=== PATIENT | female | born 1940 | race Hispanic/Latino ===

== ENCOUNTER 2017-03-13 07:47 | Day surgery (SDC) | payer OTHER ==
[~2017-03-13] VITALS: Ht 165.1 cm; Wt 46.4 kg
[~2017-03-13 07:47] MED LIST: AMLO5TAB2 PO; CHOL100040 PO; LOSA50TA37 PO; METAMUCIL; MULT-1296 PO; POLY17PO4 PO; PROBIOTIC; SIMV20TA6 PO; [UNRECOGNIZED DRUG - CODE] PO
[2017-03-13 08:27] VITALS: BP 119/65
[2017-03-13] MEDS ORDERED: SENN-183 PO (08:49)
[2017-03-13] MEDS ORDERED: SODIUM CHLORIDE 0.9% 1000ML 1,000 ML IV ONE (09:07)
[2017-03-13] MEDS ORDERED: PROPOFOL 10 MG/ML 20ML VIAL IV ONE (10:26)
== END 2017-03-13 11:18 ==
LOC: ENDO 07:47 → DAH 07:47 → ENDO 11:18
PROVIDERS: ATTEND Internal Medicine Gastroenterology
DX: K86.89 Other specified diseases of pancreas (principal); K57.30 Diverticulosis of large intestine without perforation or abscess without bleeding; I10 Essential (primary) hypertension; E78.5 Hyperlipidemia, unspecified; Z87.01 Personal history of pneumonia (recurrent); Z88.6 Allergy status to analgesic agent; Z86.010 Personal history of colon polyps; Z90.710 Acquired absence of both cervix and uterus
CPT/HCPCS: 36415; 43237; 86316; 93005; A4606; J2704; J7030; 43231; G9654

== ENCOUNTER 2017-08-25 23:50 | Emergency (ER) | payer OTHER ==
[~2017-08-25 23:50] MED LIST changes: -METAMUCIL; +SENN-183 PO
[2017-08-26 00:16] LABS: BASOPHILS % (AUTO) 0.6 % (0.0-5.0); EOSINOPHILS % (AUTO) 1.9 % (0.0-8.0); HEMATOCRIT 34.7 % (36-48); LYMPHOCYTES % (AUTO) 27.8 % (21.0-51.0); MEAN CORPUSCULAR HEMOGLOBIN 30.7 pg (27.0-33.0); MEAN CORPUSCULAR HGB CONC 35.1 g/dL (32.0-36.0); MEAN CORPUSCULAR VOLUME 87.5 fL (79-99); MONOCYTES % (AUTO) 8.1 % (3.0-13.0); NEUTROPHILS % (AUTO) 61.6 % (40.0-77.0); PLATELET COUNT (AUTO) 193 K/uL (130-400); RED BLOOD CELL COUNT(AUTO) 3.97 MIL/uL (4.00-5.50); RED CELL DISTRIBUTION WIDTH 12.7 % (11.0-15.5)
[2017-08-26 00:21] LABS: CREATININE 0.7 mg/dL (0.5-1.5); INR 1.04 (0.85-1.15); PARTIAL THROMBOPLASTIN TIME 21.9 SEC (26.3-35.5); POTASSIUM 3.2 mmol/L (3.5-5.1); PROTHROMBIN TIME 10.9 SEC (9.6-11.6)
[2017-08-26 00:35] LABS: ALBUMIN 3.5 g/dL (3.5-5.0); BILIRUBIN,TOTAL 0.4 mg/dL (0.2-1.0); CREATINE KINASE MB 0.5 ng/mL (0.5-3.6); TOTAL PROTEIN, SERUM 7.2 g/dL (6.0-8.3)
[2017-08-26 00:41] LABS: APPEARANCE,URINE Clear (CLEAR); BILIRUBIN,URINE Negative (NEGATIVE); COLOR,URINE Yellow (YELLOW); GLUCOSE, URINE (UA) Negative (NEGATIVE); KETONES,URINE Negative (NEGATIVE); LEUKOCYTE ESTERASE ,URINE Large (NEGATIVE); NITRATE,URINE Negative (NEGATIVE); OCCULT BLOOD,URINE Negative (NEGATIVE); PROTEIN,URINE Negative (NEGATIVE); UROBILINOGEN,URINE 0.2 mg/dL (0.2-1.0)
[2017-08-26 00:59] LABS: BACTERIA,URINE Few /HPF (None Seen); MUCUS,URINE Many LPF (None Seen); RBC,URINE 0-1 /HPF (0-1); RENAL EPITHELIAL CELLS,URINE Moderate /HPF (None Seen); SQUAMOUS EPITHELIAL CELL,UR Few /HPF (0-2)
[2017-08-26] MEDS ORDERED: LEVOFLOXACIN 500 MG/D5W 100 ML 100 ML ONE (01:16)
[2017-08-26] MEDS ORDERED: SODIUM CHLORIDE 0.9% 500ML 500 ML IV ONE (01:16)
== END 2017-08-26 02:26 | disposition home or self-care (01) ==
LOC: EDH 23:50
DX: N39.0 Urinary tract infection, site not specified (principal); R55 Syncope and collapse; E78.5 Hyperlipidemia, unspecified; I10 Essential (primary) hypertension; Z90.49 Acquired absence of other specified parts of digestive tract; Z90.710 Acquired absence of both cervix and uterus; Z88.6 Allergy status to analgesic agent
CPT/HCPCS: 36415; 71045; 74176; 80053; 81001; 82150; 82550; 82553; 83690; 84484; 85025; 85610; 85730; 87088; 93005; 96365; 99285; J1956; J7040

== ENCOUNTER → 2018-04-20 | Outpatient (CLI) | payer OTHER ==
[~2018-04-20] MED LIST changes: -AMLO5TAB2 PO; +AMLO5TAB9 PO; -LOSA50TA37 PO; +LOSA50TA64 PO
== END | disposition home or self-care (01) ==
LOC: RAH 10:58
PROVIDERS: ATTEND Internal Medicine
DX: R14.0 Abdominal distension (gaseous) (principal); R11.0 Nausea; R63.4 Abnormal weight loss
CPT/HCPCS: 78264; A9541

== ENCOUNTER → 2018-05-28 | Outpatient (CLI) | payer OTHER | END | disposition home or self-care (01) | LOC: RAH 07:15 | PROVIDERS: ATTEND Internal Medicine Gastroenterology | DX: K80.20 Calculus of gallbladder without cholecystitis without obstruction (principal); K76.89 Other specified diseases of liver; R63.4 Abnormal weight loss; R93.3 Abnormal findings on diagnostic imaging of other parts of digestive tract | CPT/HCPCS: 76700 ==

== ENCOUNTER → 2018-08-03 | Outpatient (CLI) | payer OTHER | END | disposition home or self-care (01) | LOC: RAH 08:27 | PROVIDERS: ATTEND Family Medicine | DX: Z12.31 Encounter for screening mammogram for malignant neoplasm of breast (principal) | CPT/HCPCS: 77067 ==

== ENCOUNTER → 2018-12-16 | Outpatient (CLI) | payer OTHER | END | disposition home or self-care (01) | LOC: RAH 07:51 | PROVIDERS: ATTEND Internal Medicine Gastroenterology | DX: K80.20 Calculus of gallbladder without cholecystitis without obstruction (principal); K76.89 Other specified diseases of liver | CPT/HCPCS: 76700 ==

== ENCOUNTER 2019-06-19 11:15 | Emergency (ER) | payer OTHER ==
[~2019-06-19 11:15] MED LIST changes: +SIMV-43 PO; -SIMV20TA6 PO
[2019-06-19 11:30] LABS: EOSINOPHILS % (AUTO) 0.5 % (0.0-8.0); HEMATOCRIT 32.3 % (36-48); MEAN CORPUSCULAR HEMOGLOBIN 30.7 pg (27.0-33.0); MEAN CORPUSCULAR HGB CONC 35.3 g/dL (32.0-36.0); MEAN CORPUSCULAR VOLUME 87.1 fL (79-99); MONOCYTES % (AUTO) 11.5 % (3.0-13.0); NEUTROPHILS % (AUTO) 68.8 % (40.0-77.0); PLATELET COUNT (AUTO) 218 K/uL (130-400); RED BLOOD CELL COUNT(AUTO) 3.71 MIL/uL (4.00-5.50); RED CELL DISTRIBUTION WIDTH 11.1 % (11.0-15.5); WHITE BLOOD COUNT (AUTO) 5.5 K/uL (4.8-10.8)
[2019-06-19] MEDS ORDERED: IPRATROPIUM/ALBUTEROL SULFATE 3 ML SOLUTION IH ONE ×2 (11:33→15:47)
[2019-06-19 11:46] LABS: INR 1.07 (0.85-1.15); PARTIAL THROMBOPLASTIN TIME 23.9 SEC (26.3-35.5); PROTHROMBIN TIME 11.5 SEC (9.6-11.6)
[2019-06-19 11:47] LABS: ALBUMIN 3.2 g/dL (3.5-5.0); BILIRUBIN,TOTAL 0.5 mg/dL (0.2-1.0); CREATININE 0.7 mg/dL (0.5-1.5); TOTAL PROTEIN, SERUM 6.8 g/dL (6.0-8.3)
[2019-06-19 12:41] LABS: RAPID GROUP A STREP NEGATIVE (NEGATIVE)
== END 2019-06-19 16:37 | disposition home or self-care (01) ==
LOC: EDH 11:15
DX: R07.89 Other chest pain (principal); R06.02 Shortness of breath; R06.2 Wheezing; E78.5 Hyperlipidemia, unspecified; I10 Essential (primary) hypertension; Z88.6 Allergy status to analgesic agent
CPT/HCPCS: 36415; 71045; 80053; 84484; 85025; 85610; 85730; 87804; 87880; 93005; 94640

== ENCOUNTER → 2019-07-14 | Outpatient (CLI) | payer OTHER ==
[~2019-07-14] MED LIST changes: +IOHEXOL 350 MG/ML 100ML INFUS..BTL IV ONE
== END | disposition home or self-care (01) ==
LOC: RAH 08:35
PROVIDERS: ATTEND Family Medicine
DX: K57.90 Diverticulosis of intestine, part unspecified, without perforation or abscess without bleeding (principal); K59.01 Slow transit constipation
CPT/HCPCS: 74178; Q9967

== ENCOUNTER → 2019-08-09 | Outpatient (CLI) | payer OTHER | END | disposition home or self-care (01) | LOC: RAH 10:21 | PROVIDERS: ATTEND Family Medicine | DX: Z12.31 Encounter for screening mammogram for malignant neoplasm of breast (principal) ==

== ENCOUNTER → 2019-10-12 | Outpatient (CLI) | payer OTHER ==
[~2019-10-12] MED LIST changes: -IOHEXOL 350 MG/ML 100ML INFUS..BTL IV ONE
== END | disposition home or self-care (01) ==
LOC: RAH 07:28
PROVIDERS: ATTEND Internal Medicine Gastroenterology
DX: K80.20 Calculus of gallbladder without cholecystitis without obstruction (principal); K76.89 Other specified diseases of liver; I70.0 Atherosclerosis of aorta
CPT/HCPCS: 76700

== ENCOUNTER 2020-04-05 09:33 | Emergency (ER) | payer OTHER ==
[~2020-04-05 09:33] MED LIST changes: +AMLO-257 PO; -AMLO5TAB9 PO
[2020-04-05] MEDS ORDERED: 0.9%NACL 1000ML 1,000 ML IV ONE (10:14)
[2020-04-05 10:20] LABS: BASOPHILS % (AUTO) 0.2 % (0.0-5.0); EOSINOPHILS % (AUTO) 0.4 % (0.0-8.0); HEMATOCRIT 34.7 % (36-48); LYMPHOCYTES % (AUTO) 19.6 % (21.0-51.0); MEAN CORPUSCULAR HEMOGLOBIN 30.6 pg (27.0-33.0); MEAN CORPUSCULAR HGB CONC 35.2 g/dL (32.0-36.0); MONOCYTES % (AUTO) 11.6 % (3.0-13.0); PLATELET COUNT (AUTO) 252 K/uL (130-400); RED BLOOD CELL COUNT(AUTO) 3.99 MIL/uL (4.00-5.50); RED CELL DISTRIBUTION WIDTH 11.7 % (11.0-15.5); WHITE BLOOD COUNT (AUTO) 5.5 K/uL (4.8-10.8)
[2020-04-05 10:34] LABS: CREATININE 0.8 mg/dL (0.5-1.5); POTASSIUM 3.4 mmol/L (3.5-5.1)
[2020-04-05 10:40] LABS: ALBUMIN 3.6 g/dL (3.5-5.0); BILIRUBIN,TOTAL 0.7 mg/dL (0.2-1.0); CRP QUANTITATIVE 3.7 mg/L (0.00-9.0); TOTAL PROTEIN, SERUM 7.4 g/dL (6.0-8.3)
[2020-04-05 11:12] LABS: B-TYPE NATRIURETIC PEPTIDE 113 pg/mL (0-100)
[2020-04-05 12:09] LABS: APPEARANCE,URINE Clear (CLEAR); BILIRUBIN,URINE Negative (NEGATIVE); COLOR,URINE Yellow (YELLOW); GLUCOSE, URINE (UA) Negative (NEGATIVE); KETONES,URINE Trace mg/dL (NEGATIVE); LEUKOCYTE ESTERASE ,URINE Trace (NEGATIVE); NITRATE,URINE Negative (NEGATIVE); OCCULT BLOOD,URINE Negative (NEGATIVE); PH,URINE 6.5 (5.0-8.0); PROTEIN,URINE Negative (NEGATIVE); UROBILINOGEN,URINE 0.2 mg/dL (0.2-1.0)
[2020-04-05 12:27] LABS: BACTERIA,URINE Rare /HPF (None Seen); RBC,URINE None Seen /HPF (0-1); WBC,URINE 0-1 /HPF (0-1)
== END 2020-04-05 15:33 | disposition home or self-care (01) ==
LOC: EDH 09:33
DX: U07.1 COVID-19 (principal); I10 Essential (primary) hypertension; E78.5 Hyperlipidemia, unspecified; Z88.6 Allergy status to analgesic agent; Z98.51 Tubal ligation status
CPT/HCPCS: 36415; 71045; 80053; 81001; 83605; 83880; 84145; 84484; 85025; 86140; 87040 ×2; 93005; 96360; 99285; J7030

== ENCOUNTER 2020-04-13 09:52 | Emergency (ER) | payer OTHER ==
[2020-04-13] MEDS ORDERED: KETOROLAC 30MG VIAL (30MG/ML) ONE (11:52)
[2020-04-13] MEDS ORDERED: CYCLOBENZAPRINE HCL 10 MG TABLET ONE (11:53)
[2020-04-13] MEDS ORDERED: ALBUTEROL INHALER 90MCG/INH IH ONE (12:10)
[2020-04-13 12:43] LABS: APPEARANCE,URINE Clear (CLEAR); BILIRUBIN,URINE Negative (NEGATIVE); COLOR,URINE Yellow (YELLOW); GLUCOSE, URINE (UA) Negative (NEGATIVE); KETONES,URINE >=80 mg/dL (NEGATIVE); LEUKOCYTE ESTERASE ,URINE Large (NEGATIVE); NITRATE,URINE Negative (NEGATIVE); OCCULT BLOOD,URINE Trace (NEGATIVE); PH,URINE 5.5 (5.0-8.0); PROTEIN,URINE Negative (NEGATIVE)
[2020-04-13] MEDS ORDERED: CEFTRIAXONE 1G VIAL ONE (13:00)
[2020-04-13] MEDS ORDERED: LIDOCAINE HCL MPF 1% 5ML VIAL ONE (13:00)
[2020-04-13 13:10] LABS: BACTERIA,URINE Few /HPF (None Seen); MUCUS,URINE Few LPF (None Seen); SQUAMOUS EPITHELIAL CELL,UR Few /HPF (0-2)
== END 2020-04-13 13:19 | disposition home or self-care (01) ==
LOC: EDH 09:52
DX: U07.1 COVID-19 (principal); M54.5 Low back pain; N30.90 Cystitis, unspecified without hematuria; E78.5 Hyperlipidemia, unspecified; I10 Essential (primary) hypertension; Z88.5 Allergy status to narcotic agent
CPT/HCPCS: 71045; 72100; 81001; 87088; 93005; 96372 ×2; 99285; J0696; J1885; J3490

== ENCOUNTER → 2023-06-18 | Outpatient (CLI) | payer OTHER ==
[~2023-06-18] MED LIST changes: -SENN-183 PO; +SENN-376 PO
== END | disposition home or self-care (01) ==
LOC: RAH 13:43
PROVIDERS: ATTEND Family Medicine
DX: M85.88 Other specified disorders of bone density and structure, other site (principal)
CPT/HCPCS: 77080

== ENCOUNTER → 2023-06-20 | Outpatient (CLI) | payer OTHER ==
[~2023-06-20] MED LIST changes: +DONE5TAB33 PO; +FAMO20TA8 PO; +LEVO75 PO; +MEMA5TAB16 PO
== END | disposition home or self-care (01) ==
LOC: SHCH 13:56
PROVIDERS: ATTEND Internal Medicine
DX: I08.3 Combined rheumatic disorders of mitral, aortic and tricuspid valves (principal); R01.1 Cardiac murmur, unspecified
CPT/HCPCS: 93306

== ENCOUNTER → 2025-01-10 | Outpatient (CLI) | payer OTHER ==
[2025-01-10 12:11] LABS: ASPARTATE AMINOTRANSFERASE 23.0 U/L (10-37); CREATININE 0.7 mg/dL (0.5-1.0); GLOMERULAR FILTR. RATE CALC 86.0 mL/min (>90); GLUCOSE,RANDOM 92.0 mg/dL (70-105); SODIUM SERUM 139.0 mmol/L (136-145); TOTAL PROTEIN, SERUM 7.7 g/dL (6.0-8.3); UREA NITROGEN, BLOOD 14.0 mg/dL (7-18)
== END | disposition home or self-care (01) ==
LOC: LAB 11:09
PROVIDERS: ATTEND Internal Medicine Gastroenterology
DX: R10.32 Left lower quadrant pain (principal)
CPT/HCPCS: 36415; 80053

== ENCOUNTER → 2025-01-18 | Outpatient (CLI) | payer OTHER ==
[~2025-01-18] MED LIST changes: +IOHEXOL-350 50ML VIAL IV ONE
--- NOTE | 2025-01-19 02:40 | HMCIMG ---
EXAM: CT Abdomen and Pelvis With and Without Intravenous Contrast CLINICAL HISTORY: [id number] pain. TECHNIQUE: Axial computed tomography images of the abdomen and pelvis obtained before and after intravenous contrast administration. Sagittal and coronal reformatted images were generated. CONTRAST: With and without intravenous contrast. COMPARISON: None provided. FINDINGS: LUNG BASES: Hyperinflated lung munoz with parenchymal scarring in the visualised bilateral lower lobes. No pleural effusion. LIVER: Unremarkable. GALLBLADDER AND BILE DUCTS: Surgically absent gallbladder. No biliary ductal dilatation. PANCREAS: Within normal limits. SPLEEN: Normal. ADRENAL GLANDS: Unremarkable. KIDNEYS, URETERS AND BLADDER: Normal renal enhancement. No hydronephrosis, hydroureter or calculi. STOMACH AND BOWEL: Segmental wall thickening involving the terminal ileum, ileocecal junction and proximal ascending colon with adjacent mesenteric inflammatory fat stranding, compatible with an inflammatory ileocolic process. There is heavy distal colonic diverticulosis with areas of mild diverticulitis, characterised by focal mural thickening and pericolonic fat stranding in the distal descending and sigmoid colon. No CT evidence of perforation, free air, or willie abscess. No bowel obstruction. Stomach unremarkable. APPENDIX: No CT evidence of acute appendicitis. PERITONEUM: No free fluid or free intraperitoneal air. LYMPH NODES: No abdominal or pelvic lymphadenopathy. REPRODUCTIVE: Surgically absent uterus. Adnexal regions unremarkable as visualised. VASCULATURE: Severe calcific atherosclerosis of the abdominal aorta without aneurysmal dilation. BONES: No acute osseous abnormality. Mild degenerative lumbar spondylosis with Schmorl???s nodes at the opposing endplates of L1???L2 and marginal sclerosis. IMPRESSION: * Heavy distal colonic diverticulosis with areas of mild diverticulitis, without CT evidence of perforation or abscess???correlates with the patient???s [id number] pain. 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 * Severe abdominal aortic atherosclerosis. * Hyperinflated lung bases with parenchymal scarring. * Postsurgical status: absent gallbladder and absent uterus. * Mild degenerative lumbar spondylosis with Schmorl???s nodes at L1???L2. /[place]
== END | disposition home or self-care (01) ==
LOC: RAH 07:42
PROVIDERS: ATTEND Internal Medicine Gastroenterology
DX: K57.30 Diverticulosis of large intestine without perforation or abscess without bleeding (principal); R10.32 Left lower quadrant pain; J98.4 Other disorders of lung; K52.9 Noninfective gastroenteritis and colitis, unspecified; I70.0 Atherosclerosis of aorta; K57.32 Diverticulitis of large intestine without perforation or abscess without bleeding; M47.816 Spondylosis without myelopathy or radiculopathy, lumbar region
CPT/HCPCS: 74178; Q9967